=== PATIENT | male | born 2000 | race Caucasian/White ===

== ENCOUNTER 2019-06-29 10:29 | Emergency (ER) | payer SELFPAY ==
[2019-06-29] MEDS ORDERED: Famotidine 20 MG/2 ML SDV IVPUSH ONE (11:04)
[2019-06-29] MEDS ORDERED: Famotidine 20 MG Tab PO ONE (11:11)
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
[2019-06-29 12:32] VITALS: BP 128/79; PULSE 74
== END 2019-06-29 12:20 | disposition home or self-care (01) ==
LOC: JD.ED 10:29
DX: K29.21 Alcoholic gastritis with bleeding (principal); F17.210 Nicotine dependence, cigarettes, uncomplicated
CPT/HCPCS: 36415; 80053; 83690; 85025; 85610; 85730; 99284; A9270; 99282

== ENCOUNTER 2021-03-06 10:36 | Emergency (ER) | payer MEDICAID ==
[2021-03-06 10:45] VITALS: PULSE 68
[2021-03-06] MEDS ORDERED: Sodium Chloride 0.9% 1,000 ML IV STA (11:18)
[2021-03-06] MEDS ORDERED: HYDROmorphone 0.5 MG/0.5 ML Syringe IVPUSH ONE ×4 (11:18→15:59)
[2021-03-06] MEDS ORDERED: Ondansetron 4 MG/2 ML SDV IVPUSH ONE (11:18)
[2021-03-06] MEDS: Sodium Chloride 0.9% 10 ML Syringe FLUSH PRN ×2 (11:31→12:48)
--- NOTE | 2021-03-06 11:58 | EDM.PDOC ---
ED HPI GENERAL MEDICAL PROBLEM - General Chief Complaint: Abdominal Pain Stated Complaint: RT LOWER ABD PAIN Time Seen by Provider: 03/06/21 11:06 Source of Information: Reports: Patient, RN Notes Reviewed History Limitations: Reports: No Limitations - History of Present Illness INITIAL COMMENTS - FREE TEXT/NARRATIVE: Patient is a 21-year-old male presenting to the emergency department with complaints of diffuse right lower quadrant abdominal pain. He reports waking with the pain this morning but at that time it was fairly mild. Throughout the course of the morning the pain has progressively worsened. He denies any vomiting but states that he does feel nauseous with this. Pain stays localized to the right lower quadrant and does not radiate down into his groin or back. He has had no fever or chills. Denies flank pain or hematuria. He denies any previous abdominal surgeries. Denies constipation or diarrhea. abdomen Pain Score (Numeric/FACES): 10 - Related Data Allergies Allergy/AdvReac Type Severity Reaction Status Date / Time No Known Allergies Allergy Verified 03/06/21 10:46 Home Meds: Home Meds . [No Known Home Meds] 05/30/15 [History] Past Medical History - Past Health History Medical/Surgical History: Denies Medical/Surgical History Respiratory History: Reports: Pneumonia, Recurrent Social & Family History - Tobacco Use Tobacco Use Status *Q: Current Every Day Tobacco User Years of Tobacco use: 10 Packs/Tins Daily: 1.5 - Caffeine Use Caffeine Use: Reports: Energy Drinks, Soda - Recreational Drug Use Recreational Drug Use: No ED ROS GENERAL - Review of Systems Review Of Systems: See Below Constitutional: Denies: Fever, Chills, Decreased Appetite HEENT: Reports: No Symptoms Respiratory: Reports: No Symptoms Cardiovascular: Reports: No Symptoms Endocrine: Reports: No Symptoms GI/Abdominal: Reports: Abdominal Pain, Nausea. Denies: Constipation, Diarrhea, Vomiting : Reports: No Symptoms. Denies: Dysuria, Flank Pain, Hematuria Musculoskeletal: Reports: No Symptoms Skin: Reports: No Symptoms Neurological: Reports: No Symptoms Psychiatric: Reports: No Symptoms Hematologic/Lymphatic: Reports: No Symptoms Immunologic: Reports: No Symptoms ED EXAM, GI/ABD - Physical Exam Exam: See Below General Appearance: Alert, WD/WN, No Apparent Distress Respiratory/Chest: No Respiratory Distress, Lungs Clear, Normal Breath Sounds, No Accessory Muscle Use, Chest Non-Tender Cardiovascular: Normal Peripheral Pulses, Regular Rate, Rhythm, No Edema, No Gallop, No JVD, No Murmur, No Rub GI/Abdominal Exam: Normal Bowel Sounds, Soft, No Organomegaly, No Distention, No Abnormal Bruit, No Mass, Pelvis Stable, Guarding, Tender (mild RLQ). No: Rigid, Rebound Back Exam: Normal Inspection, Full Range of Motion. No: CVA Tenderness (L), CVA Tenderness (R) Neurological: Alert, Oriented, CN II-XII Intact, Normal Cognition, Normal Gait, Normal Reflexes, No Motor/Sensory Deficits Psychiatric: Normal Affect, Normal Mood Skin Exam: Warm, Dry, Intact, Normal Color, No Rash Course - Vital Signs Last Recorded V/S: Last Vital Signs Temp 98.1 F 03/06/21 16:18 Pulse 68 03/06/21 10:43 Resp 18 03/06/21 16:18 BP 132/85 03/06/21 16:18 Pulse Ox 97 03/06/21 16:18 - Orders/Labs/Meds Orders: Active Orders 24 hr Category Date Time Status Peripheral IV Insertion Adult [OM.PC] Stat Oth 03/06/21 11:17 Ordered Labs: Laboratory Tests 03/06/21 03/06/21 03/06/21 Range/Units 11:38 11:38 12:36 WBC 10.30 H (4.23-9.07) K/mm3 RBC 5.52 (4.63-6.08) M/mm3 Hgb 15.3 (13.7-17.5) gm/dl Hct 45.2 (40.1-51.0) % MCV 81.9 (79.0-92.2) fl MCH 27.7 (25.7-32.2) pg MCHC 33.8 (32.2-35.5) g/dl RDW Std Deviation 40.4 (35.1-43.9) fL Plt Count 269 (163-337) K/mm3 MPV 9.9 (9.4-12.3) fl Neut % (Auto) 81.3 H (34.0-67.9) % Lymph % (Auto) 11.3 L (21.8-53.1) % Isabela % (Auto) 6.4 (5.3-12.2) % Eos % (Auto) 0.6 L (0.8-7.0) Baso % (Auto) 0.2 (0.1-1.2) % Neut # (Auto) 8.38 H (1.78-5.38) K/mm3 Lymph # (Auto) 1.16 L (1.32-3.57) K/mm3 Isabela # (Auto) 0.66 (0.30-0.82) K/mm3 Eos # (Auto) 0.06 (0.04-0.54) K/mm3 Baso # (Auto) 0.02 (0.01-0.08) K/mm3 Sodium 139 (136-145) mEq/L Potassium 4.0 (3.5-5.1) mEq/L Chloride 103 (98-107) mEq/L Carbon Dioxide 24 (21-32) mEq/L Anion Gap 16.0 H (5-15) BUN 22 H (7-18) mg/dL Creatinine 1.0 (0.7-1.3) mg/dL Est Cr Clr Drug Dosing 126.10 mL/min Estimated GFR (MDRD) > 60 (>60) mL/min BUN/Creatinine Ratio 22.0 H (14-18) Glucose 136 H (70-99) mg/dL Calcium 8.8 (8.5-10.1) mg/dL Total Bilirubin 0.5 (0.2-1.0) mg/dL AST 30 (15-37) U/L ALT 66 H (16-63) U/L Alkaline Phosphatase 126 H (46-116) U/L C-Reactive Protein < 0.2 (<1.0) mg/dL Total Protein 7.2 (6.4-8.2) g/dl Albumin 4.3 (3.4-5.0) g/dl Globulin 2.9 gm/dL Albumin/Globulin Ratio 1.5 (1-2) Lipase 68 L (73-393) U/L Urine Color (Yellow) Urine Appearance (Clear) Urine pH (5.0-8.0) Ur Specific Barry (1.005-1.030) Urine Protein (Negative) Urine Glucose (UA) (Negative) Urine Ketones (Negative) Urine Occult Blood (Negative) Urine Nitrite (Negative) Urine Bilirubin (Negative) Urine Urobilinogen (0.2-1.0) Ur Leukocyte Esterase (Negative) Urine RBC (0-5) /hpf Urine WBC (0-5) /hpf Ur Epithelial Cells (0-5) /hpf Urine Bacteria (FEW) /hpf Urine Mucus (FEW) /hpf SARS-CoV-2 RNA (RENNY) Negative (NEGATIVE) C trachomatis DNA (PCR) N gonorrhoeae DNA (PCR) 03/06/21 03/06/21 Range/Units 13:25 13:25 WBC (4.23-9.07) K/mm3 RBC (4.63-6.08) M/mm3 Hgb (13.7-17.5) gm/dl Hct (40.1-51.0) % MCV (79.0-92.2) fl MCH (25.7-32.2) pg MCHC (32.2-35.5) g/dl RDW Std Deviation (35.1-43.9) fL Plt Count (163-337) K/mm3 MPV (9.4-12.3) fl Neut % (Auto) (34.0-67.9) % Lymph % (Auto) (21.8-53.1) % Isabela % (Auto) (5.3-12.2) % Eos % (Auto) (0.8-7.0) Baso % (Auto) (0.1-1.2) % Neut # (Auto) (1.78-5.38) K/mm3 Lymph # (Auto) (1.32-3.57) K/mm3 Isabela # (Auto) (0.30-0.82) K/mm3 Eos # (Auto) (0.04-0.54) K/mm3 Baso # (Auto) (0.01-0.08) K/mm3 Sodium (136-145) mEq/L Potassium (3.5-5.1) mEq/L Chloride (98-107) mEq/L Carbon Dioxide (21-32) mEq/L Anion Gap (5-15) BUN (7-18) mg/dL Creatinine (0.7-1.3) mg/dL Est Cr Clr Drug Dosing mL/min Estimated GFR (MDRD) (>60) mL/min BUN/Creatinine Ratio (14-18) Glucose (70-99) mg/dL Calcium (8.5-10.1) mg/dL Total Bilirubin (0.2-1.0) mg/dL AST (15-37) U/L ALT (16-63) U/L Alkaline Phosphatase (46-116) U/L C-Reactive Protein (<1.0) mg/dL Total Protein (6.4-8.2) g/dl Albumin (3.4-5.0) g/dl Globulin gm/dL Albumin/Globulin Ratio (1-2) Lipase (73-393) U/L Urine Color Yellow (Yellow) Urine Appearance Clear (Clear) Urine pH 8.0 (5.0-8.0) Ur Specific Barry 1.025 (1.005-1.030) Urine Protein Negative (Negative) Urine Glucose (UA) Negative (Negative) Urine Ketones Negative (Negative) Urine Occult Blood Negative (Negative) Urine Nitrite Negative (Negative) Urine Bilirubin Negative (Negative) Urine Urobilinogen 0.2 (0.2-1.0) Ur Leukocyte Esterase Negative (Negative) Urine RBC 0-5 (0-5) /hpf Urine WBC 5-10 H (0-5) /hpf Ur Epithelial Cells 0-5 (0-5) /hpf Urine Bacteria Few (FEW) /hpf Urine Mucus Few (FEW) /hpf SARS-CoV-2 RNA (RENNY) (NEGATIVE) C trachomatis DNA (PCR) Not detected N gonorrhoeae DNA (PCR) Not detected Meds: Medications Discontinued Medications Generic Name Dose Route Start Last Admin Trade Name Freq PRN Reason Stop Dose Admin Diatrizoate Meglum/Diatrizoate Sod 60 ml 03/06/21 12:29 03/06/21 12:49 Diatrizoate Meglumine/Diatrizoate Sodium 37% 120 Ml Bottle PO 03/06/21 12:30 45 ml ONETIME ONE Administration Hydromorphone HCl 0.5 mg 03/06/21 11:18 03/06/21 11:31 Hydromorphone 0.5 Mg/0.5 Ml Syringe IVPUSH 03/06/21 11:19 0.5 mg ONETIME ONE Administration Hydromorphone HCl 0.5 mg 03/06/21 12:30 03/06/21 12:40 Hydromorphone 0.5 Mg/0.5 Ml Syringe IVPUSH 03/06/21 12:31 0.5 mg ONETIME ONE Administration Hydromorphone HCl 0.5 mg 03/06/21 13:58 03/06/21 14:12 Hydromorphone 0.5 Mg/0.5 Ml Syringe IVPUSH 03/06/21 13:59 0.5 mg ONETIME ONE Administration Hydromorphone HCl 0.5 mg 03/06/21 15:59 03/06/21 16:06 Hydromorphone 0.5 Mg/0.5 Ml Syringe IVPUSH 03/06/21 16:00 0.5 mg ONETIME ONE Administration Sodium Chloride 1,000 mls @ 150 mls/hr 03/06/21 11:18 03/06/21 11:31 Normal Saline IV 03/06/21 17:57 150 mls/hr NOW STA Administration Iopamidol 100 ml 03/06/21 12:29 03/06/21 12:48 Iopamidol 612 Mg/Ml 100 Ml Bottle IVPUSH 03/06/21 12:30 100 ml ONETIME ONE Administration Ondansetron HCl 4 mg 03/06/21 11:18 03/06/21 11:31 Ondansetron 4 Mg/2 Ml Sdv IVPUSH 03/06/21 11:19 4 mg ONETIME ONE Administration Sodium Chloride 10 ml 03/06/21 11:17 03/06/21 12:48 Sodium Chloride 0.9% 10 Ml Syringe FLUSH 10 ml ASDIRECTED PRN Administration Keep Vein Open - Re-Assessments/Exams Free Text/Narrative Re-Assessment/Exam: Patient is a 21 year old male presenting to the ER with c/o diffuse RLQ abdominal pain which began this morning and has been progressively worsening. On exam, he has mild RLQ tenderness. He has difficulty standing upright d/t the pain. Reports nausea, but no vomiting. I have ordered blood work, urinalysis, CT abdomen pelvis with contrast, NS at 150 ml/hr, Zofran, and Dilaudid. 03/06/21 14:03 Hematology was significant for WBC minimally elevated at 10.3, anion gap 16, BUN 22. Urinalysis was negative for blood or infection. Covid was negative. CT scan of the abdomen pelvis shows enlarged caudate lobe of the liver which is increased in density as compared to other portions letter. Etiology this finding is uncertain please consider MRI with and without contrast to further evaluate. Results discussed with patient. Recommend that he follow-up with primary care for MRI evaluation of the enlarged lobe of his liver. He now reports to me that this morning he started having swelling in his right testicle which he did not mention earlier. On exam, he does have swelling and tenderness to his right testicle. I have ordered a scrotum and contents ultrasound as well as a urine GC chlamydia. I will give another dose of Dilaudid 0.5 mg IV. 03/06/21 15:58 Ultrasound of the scrotum and contents shows findings within the right testicle compatible with torsion. Surgical referral strongly recommended. Enlarged right epididymis and right sided hydrocele. Small left-sided hydrocele and 2 small left-sided epididymal cysts. Case was discussed with urologist at [facility], Dr. Roger. He recommend patient be sent to the emergency department and he will see him there. Spoke with physician in the ER, Dr. Walls. She has accepted the patient for transfer. Our EMS is out on a transfer, therefore waiting for them to return will delay care. I will give him a dose of Dilaudid 0.5 mg IV and wrap up his IV. His girlfriend will drive him to [facility] in [place]. Departure - Departure Time of Disposition: 15:59 Disposition: DC/Tfer to Acute Hospital 02 Condition: Good Clinical Impression: Testicular torsion - Discharge Information Referrals: PCP,None [Primary Care Provider] - Forms: ED Department Discharge Additional Instructions: You were seen in the emergency department today for right lower quadrant abdominal pain as well as pain and swelling to your right testicle. Results of your work-up are concerning for a testicular torsion on the right side. Arrangements have been made for you to be seen and treated by urologist at [facility] in [place]. Go directly to [facility] from here. Do not eat or drink anything in route in preparation for surgery. Sepsis Event Note (ED) - Evaluation Sepsis Screening Result: No Definite Risk - Focused Exam Vital Signs: Vital Signs Temp Pulse Resp BP Pulse Ox 03/06/21 16:18 98.1 F 18 132/85 97 03/06/21 10:43 96.6 F L 68 22 H 138/71 98 - My Orders Last 24 Hours: My Active Orders 03/06/21 11:17 Peripheral IV Insertion Adult [OM.PC] Stat - Assessment/Plan Last 24 Hours: My Active Orders 03/06/21 11:17 Peripheral IV Insertion Adult [OM.PC] Stat
[2021-03-06] MEDS ORDERED: Iopamidol 612 MG/ML 100 ML Bottle IVPUSH ONE (12:29)
[2021-03-06] MEDS ORDERED: Diatrizoate Meglumine/Diatrizoate Sodium 37% 120 ML Bottle PO ONE (12:29)
--- NOTE | 2021-03-06 13:15 | CT ---
CT abdomen and pelvis Technique: Multiple axial sections were obtained from above the dome of the diaphragm inferiorly through the pubic symphysis. Intravenous and oral contrast was utilized. Delayed images were also obtained through the bladder. Reconstructed coronal and sagittal images were obtained. Findings: Visualized lung bases show nothing acute. Enlarged caudate lobe is noted within the liver which shows increased density as compared to other portions of the liver. No additional liver abnormality is appreciated. Spleen size is normal. Adrenal gland shows no nodule. Pancreas is within normal limits. Kidneys show symmetric contrast enhancement without hydronephrosis or mass being seen. Gallbladder contains no calcified gallstones. Abdominal aorta shows no aneurysm. No retroperitoneal adenopathy or mesenteric abnormalities are seen. Appendix is seen which is normal. No pelvic mass or adenopathy is seen. Delayed images show contrast within the bladder. Bone window settings were reviewed which show no acute osseous abnormality. Impression: 1. Enlarged caudate lobe of the liver which is increased in density as compared to other portions of the liver. Etiology of this finding is uncertain and please consider MRI without and with contrast to further evaluate. 2. Other normal findings as noted above. Diagnostic code #3
[2021-03-06 15:30] LABS: C. TRACHOMATIS BY PCR NOT DETECTED; N. GONORRHOEAE BY PCR NOT DETECTED
--- NOTE | 2021-03-06 15:34 | US ---
Testicular ultrasound: Multiple real-time images of the testicles were obtained. Comparison: No prior testicular imaging is available. Findings: Right testicle shows low blood flow compared to the left testicle. At termination of exam no blood flow is seen within the right testicle. These findings are compatible with testicular torsion on the right side. Epididymis is also enlarged on the right side with right-sided hydrocele. No intratesticular abnormality is seen. Minimal fluid is noted on the left side. Several small epididymal cysts are noted on the left side. Measurements: Right testicle: 5.1 x 3.7 x 3.1 cm Left testicle: 4.8 x 2.7 x 2.7 cm. Impression: 1. Findings within the right testicle are compatible with torsion. Surgical referral is strongly recommended. 2. Enlarged right epididymis and right sided hydrocele. 3. Small left-sided hydrocele and 2 small left-sided epididymal cyst. Diagnostic code #5
[2021-03-06 16:19] VITALS: BP 132/85
== END 2021-03-06 16:17 ==
LOC: JD.ED 10:36
DX: N44.00 Torsion of testis, unspecified (principal); Z72.0 Tobacco use; Z20.822 Contact with and (suspected) exposure to COVID-19
CPT/HCPCS: 36415; 74177; 76870; 80053; 81001; 83690; 85025; 86140; 87491; 87591; 87635; 93975; 96374; 96375; 96376; 99285; J1170; J2405; J7030; Q9963; Q9967; U0002

== ENCOUNTER 2024-10-07 15:53 | Emergency (ER) | payer SELFPAY ==
[2024-10-07] MEDS: Ketorolac 30 MG/ML SDV IM ONE (17:01)
[2024-10-07] MEDS: HYDROmorphone 1 MG/ML Syringe IVPUSH ONE (18:03)
[2024-10-07] MEDS ORDERED: Sodium Chloride 0.9% 10 ML Syringe FLUSH PRN (18:24)
[2024-10-07] MEDS: Sodium Chloride 0.9% 1,000 ML IV ONE (19:10)
[2024-10-07] MEDS: Propofol 200 MG/20 ML SDV IVPUSH ONE ×4 (19:19→19:26)
[2024-10-08] MEDS: Sodium Chloride 0.9% 1,000 ML ONE (02:14)
[2024-10-08 02:49] VITALS: BP 152/86; PULSE 90
== END 2024-10-07 20:55 | disposition home or self-care (01) ==
LOC: JD.ED 15:53
DX: S43.005A Unspecified dislocation of left shoulder joint, initial encounter (principal); F17.210 Nicotine dependence, cigarettes, uncomplicated; W00.9XXA Unspecified fall due to ice and snow, initial encounter
CPT/HCPCS: 23650; 73030; 73060; 96372; 96374; 99152; 99153; 99283; J1171; J1885; J2704; J7030